=== PATIENT | female | born 1935 | race Caucasian/White ===

== ENCOUNTER 2021-04-06 17:14 | Outpatient (CLI) | payer MEDICARE, SELFPAY ==
--- NOTE | ~2021-04-06 | MM_ITS ---
EXAMINATION: MM screening jose BI w don HISTORY: Screening mammogram TECHNIQUE: Craniocaudal and mediolateral oblique 3-D tomosynthesis images were obtained and synthetic 2-D images were generated. CAD analysis was submitted and interpreted. COMPARISON: 07/15/2018, 02/15/2017, 09/09/2014 bilateral digital screening mammogram examinations BREAST PARENCHYMAL COMPOSITION: There are scattered areas of fibroglandular density. FINDINGS: Stable mild fibroglandular asymmetry. Occasional bilateral benign calcifications. There is no evidence of suspicious mass, calcification, or architectural distortion to suggest malignancy in e ither breast. There has been no suspicious interval change. IMPRESSION: 1. No mammographic evidence of malignancy. 2. Recommend routine screening mammography in one year. BI-RADS Category 2: Benign finding(s). Reviewed, dictated and finalized at location A.
--- NOTE | ~2021-04-06 | DEXA_ITS ---
Bone Density Report Name: Elsa Turner Age: 86 Sex: Female Ethnicity: White Date of : 1935 Indication: osteopenia; height loss; hysterectomy;postmenopausal Referring Provider: Ketan Rodrigez Study: Bone densitometry was performed. Exam Date: April 06, 2021 Accession number: [id number] There is hypertrophic degenerative change of the lumbar spine, which results in higher than expected spine bone mineral density measurements. These spine BMD and T score and Z score measurements are not reflective of the patient's true general bone mineral density. Bone Density: Region BMD T-score Z-score Classification AP Spine (L1, L2, L4) 1.102 0.6 3.5 Normal Femoral Neck (Left) 0.581 -2.4 0.1 Osteopenia Total Hip (Left) 0.714 -1.9 0.5 Osteopenia Total Hip Bilateral Avg 0.763 -1.5 0.9 Osteopenia Femoral Neck (Right) 0.564 -2.6 0.0 Osteoporosis Total Hip (Right) 0.811 -1.1 1.3 Osteopenia World Health Organization criteria for BMD impression classify patients as: Normal (T-score at or above -1.0), Osteopenia (T-score between -1.0 and -2.5), or Osteoporosis (T-score at or below -2.5). 10-year Fracture Risk: FRAX not reported because: Some T-score for Spine Total or Hip Total or Femoral Neck at or below -2.5 Previous Exams: Region Exam Age BMD T-score BMD Change BMD Change Date g/cm2 vs Baseline vs Previous AP Spine(L1, L2, L4) 04/06/2021 86 1.102 0.6 0.196(21.6%)# 0.049(4.6%)# 03/27/2019 84 1.053 0.2 0.147(16.3%)# 0.147(16.3%)# 10/27/2008 73 0.906 -1.2 Total Hip(Left) 04/06/2021 86 0.714 -1.9 -0.110(-13.4%) -0.070(-8.9%)# 03/27/2019 84 0.783 -1.3 -0.040(-4.9%)# -0.004(-0.5%) 02/15/2017 81 0.787 -1.3 -0.036(-4.4%)# 0.039(5.2%)# 07/06/2013 78 0.749 -1.6 -0.075(-9.1%)# -0.075(-9.1%)10/27/2008 73 0.824 -1.0 Total Hip(Right) 04/06/2021 86 0.811 -1.1 -0.047(-5.5%)# 0.014(1.8%)# 03/27/2019 84 0.796 -1.2 -0.061(-7.1%)# -0.027(-3.3%) 02/15/2017 81 0.824 -1.0 -0.034(-3.9%)# -0.062(-7.0%)07/06/2013 78 0.885 -0.5 0.028(3.2%)# 0.028(3.2%)10/27/2008 73 0.858 -0.7 *Denotes significance at 95% confidence level, LSC for AP Spine = 0.022 g/cm2, LSC for Total Hip = 0.027 g/cm2 Clinical Information Provided by Patient: Smokes Has used the following medications: Vitamin D, Calcium Has the following medical conditions: Hysterectomy Patient maximum height was 62 Menopause Age: 43 No regular weight bearing exercise Drinks caffeinated beverages Onset o
== END 2021-04-06 17:15 | disposition home or self-care (01) ==
LOC: ANHIMG 17:17
PROVIDERS: PCP Family Medicine; Visit Provider Physician Assistant Medical
DX: Z12.31 Encounter for screening mammogram for malignant neoplasm of breast (principal); M81.0 Age-related osteoporosis without current pathological fracture; Z78.0 Asymptomatic menopausal state
CPT/HCPCS: 77063; 77067; 77080

== ENCOUNTER 2022-11-19 10:48 | Outpatient (CLI) | payer MEDICARE, SELFPAY ==
--- NOTE | ~2022-11-19 | US_ITS ---
EXAMINATION: US renal BI DATE: 11/19/2022 11:53 INDICATION: N18.4 - Chronic kidney disease, stage 4 (severe) TECHNIQUE: Multiple grayscale and Doppler ultrasound images of the kidneys were obtained. COMPARISON: None. FINDINGS: The right kidney measures 8.5 x 4.5 x 4.3 cm. The left kidney measures 9.4 x 4.3 x 3.7 cm. The kidney s demonstrate normal parenchymal echogenicity. 1 cm hyperechoic focus in the lateral right kidney wit h shadowing and twinkle artifact. Multiple echogenic foci in the left kidney, largest at the UPJ ilir uring 8mm. 2.1 cm simple upper pole cyst. There is mild left hydronephrosis. Ureteral jets not visual ized. Echogenic focus in the left lateral bladder wall with twinkle artifact. IMPRESSION: Bilateral nephrolithiasis. 8mm left UPJ stone. Mild left hydronephrosis. Ureteral jets not visualized . Bladder stone or calcification. Consider CT urography for further evaluation Reviewed, dictated and finalized at location K. IMPRESSION: Bilateral nephrolithiasis. 8mm left UPJ stone. Mild left hydronephrosis. Ureter al jets not visualized. Bladder stone or calcification. Consider CT urography f or further evaluation
== END 2022-11-19 10:49 | disposition home or self-care (01) ==
PROVIDERS: PCP Family Medicine; Visit Provider Internal Medicine Nephrology
DX: N18.4 Chronic kidney disease, stage 4 (severe) (principal); N20.0 Calculus of kidney
CPT/HCPCS: 76775

== ENCOUNTER 2022-11-28 10:07 | Outpatient (CLI) | payer MEDICARE, SELFPAY ==
--- NOTE | ~2022-11-28 | XR_ITS ---
Supine and upright views of the abdomen Clinical history: Renal stone COMPARISON: 05/26/2012 Findings: Bowel gas pattern is nonspecific. No evidence for obstruction or free air. There are bilate ral renal stones present, measuring up to 6 mm in diameter right upper pole, and 5 mm in diameter lef t lower pole. No definite ureteral stone. There is levoscoliosis with degenerative change of the lowe r lumbar spine.. Impression: Bilateral nephrolithiasis, as above. Reviewed, dictated and finalized at location M. Impression: Bilateral nephrolithiasis, as above.
== END 2022-11-28 10:08 | disposition home or self-care (01) ==
PROVIDERS: PCP Family Medicine; Visit Provider Urology
DX: N20.0 Calculus of kidney (principal)
CPT/HCPCS: 74018

== ENCOUNTER 2022-12-10 11:08 | Outpatient (CLI) | payer MEDICARE, SELFPAY ==
--- NOTE | 2022-12-10 11:23 | ECG_ITS ---
Measurements Intervals [place] Rate: 70 P: 53 OH: 221 QRS: 6 QRSD: 86 T: 56 QT: 375 QTc: 405 Interpretive Statements SINUS RHYTHM WITH FIRST DEGREE AV BLOCK BASELINE ARTIFACT- I, II, III, AVR, AVL, AVF, V1-V6 BORDERLINE ECG NO PREVIOUS ECG AVAILABLE FOR COMPARISON Electronically Signed On 12-10-2022 12:18:09 CDT by Bandar Robin D.O.
[2022-12-10 12:18] LABS: Anion Gap 2 mmol/L (8-16); Blood Urea Nitrogen 36 mg/dL (7-17); Calcium 9.6 mg/dL (8.4-10.2); Carbon Dioxide 33 mmol/L (22-30); Chloride 102 mmol/L (98-107); Estimated Glomerular Filt Rate 21; Glucose 101 mg/dL (65-110); Potassium 4.9 mmol/L (3.4-5.0); Prothrombin Time 13.1 Seconds (11.1-14.7); Sodium 137 mmol/L (137-145)
[2022-12-10 12:19] LABS: Partial Thromboplastin Time 34.9 SECONDS (22.3-36.8)
== END 2022-12-10 11:09 | disposition home or self-care (01) ==
PROVIDERS: Anesthesiology; PCP Family Medicine; Visit Provider Urology
DX: I12.9 Hypertensive chronic kidney disease with stage 1 through stage 4 chronic kidney disease, or unspecified chronic kidney disease (principal); N18.4 Chronic kidney disease, stage 4 (severe); N20.0 Calculus of kidney; Z01.818 Encounter for other preprocedural examination; I44.0 Atrioventricular block, first degree
CPT/HCPCS: 36415; 80048; 85610; 85730; 87086; 87088; 93005

== ENCOUNTER 2022-12-14 02:06 | Day surgery (SDC) | payer MEDICARE, SELFPAY ==
[2022-12-05 13:01] VITALS: BMI 24.3
--- NOTE | 2022-12-05 13:18 | PC.NURSE ---
PRE-OP INSTRUCTIONS, PLEASE READ CAREFULLY Report to the Outpatient Waiting Room, entrance under the green pavilion located off [facility], at time _0930_ on date _12/14/22_. Planned Procedure Time: _1130_. Time changes happen often and if your time is changed the preop area will call you the afternoon before. - You and your visitor will be asked to self-screen and do not enter if you have any COVID symptoms. - A mask is optional within the hospital at this time. Patients may have clear liquids (water, carbonated beverages, clear teas, apple juice) until 3 hours prior to surgery (0830 AM) with a maximum of 20 ounces. - No food from midnight until time of surgery Take the following medications with a SIP of water the morning of surgery: _GABAPENTIN, METOPROLOL, INHALER IF NEEDED_ DO NOT STOP ANY OF YOUR OTHER PRESCRIPTION MEDICATIONS PRIOR TO SURGERY ?EXCEPT THE FOLLOWING Medications to discontinue _ASPIRIN PER DR. STEELE'S INSTRUCTIONS__ Medications to discontinue per ANESTHESIA - _MULTIVITAMIN 3 DAYS PRIOR TO SURGERY, Date to take last dose 12/10/22_ Please no make-up, nail maltese, hairspray, perfume, deodorant, or body powder the day of surgery. No jewelry (including any body piercings) or valuables the day of surgery, leave them at home. Please take a shower or bath the night before, or the morning of, surgery with an antibacterial soap. Wear comfortable, loose fitting clothing. Children are encouraged to wear pajamas. - Jewelry must be removed prior to entering the operating room. Rings and piercings that are not removed may be cut off. - The hospital will not accept responsibility for valuables. - Please leave all valuables, including medications, at home the day of surgery. If you are going home after surgery, a licensed goat driver must drive you home. - NO public transportation without another adult if you receive anesthesia. - We recommend that an adult stay with you for 24 hours following discharge. - We also recommend that you do not drive, make important decision, drink alcoholic beverages, or take any drugs that were not prescribed by your health care provider for at least 24 hours after your discharge time. Follow any additional instructions given to you from your surgeon. If you or anyone in your household have experienced Covid symptoms in the past week, please notify your surgeon or the nurse liaison at the phone number below for possible testing. Telephone instructions given to _PATIENT_and asked if any additional questions and then verbalized understanding. Patient advised to call surgeon office or pre surgery nurse liaison [phone] if any additional questions.
--- NOTE | 2022-12-10 18:56 | PM.HPGS ---
History of Present Illness History of Present Illness Consent: Risks, benefits, and alternatives have been discussed and questions answered. Patient agrees to proceed with procedure. Chief complaint: Left Kidney Stone Narrative: Elsa Turner is a 87 year old female recently underwent renal ultrasonography at the recommendation of her shop mechanic helper. This demonstrated an 8 mm partially obstructing stone at the left ureteropelvic junction. Follow-up imaging demonstrates calcification in the stone. After discussion of options she has elected for left ESWL. She is aware the risk including, but not limited to, perinephric hematoma, worsening of her kidney function,, need for additional procedures and hematuria or perinephric hematoma Review of Systems Review of Systems: All systems reviewed & are unremarkable except as noted in HPI and below PMFSH Past Medical History Medical History CKD (chronic kidney disease) stage 3, GFR 30-59 ml/min Fall Hypoglycemia Trigeminal neuralgia of right side of face Family History Family History Father Hypertension Sibling Hypertension Other Diabetes mellitus Social History Social History Smoking packs per day: 0.15 (1 pack per 2 1/2 weeks) Smoking cigarettes per day: 3.0 Years smoked: 70 Smoking pack-years: 10.50 Smoking status: Current every day smoker Tobacco type: cigarettes Additional smoking assessment comments: 1PK/2 1/2 WEEKS Alcohol intake: current Substance use type: does not use Lack of Transportation: No Lack of Food: Never True Current Housing: I Have Housing Concerned About Future Housing: No Difficulty Paying Gas/Electric Bills: No Difficulty Paying for Meds: No Currently Unemployed: No Education: High School Diploma/GED Difficulty w/ Childcare or Family Care: No Living arrangements: with family Gender identity (if verbalized by the patient): Female Spiritual care concerns: No Meds Home Medications and Allergies Home Medications Medication Instructions Recorded Confirmed Type aspirin 81 mg tablet,delayed 81 mg PO DAILY 07/03/19 12/05/22 History release (Adult Aspirin Regimen) calcium carbonate 600 mg calcium 600 mg PO DAILY 07/03/19 12/05/22 History (1,500 mg) tablet (Calcium) multivit with 1 tablet PO DAILY 02/02/21 12/05/22 History ndutmdut-egfb-OS-lutein 8 mg iron-400 mcg-300 mcg tablet (Centrum Silver Women) albuterol sulfate 90 mcg/actuation 2 puff inhalation Q6H PRN 06/27/21 12/05/22 Rx aerosol inhaler shortness of breath or wheezing #18 grams lovastatin 40 mg tablet 40 mg PO DAILY #90 tabs 03/07/22 12/05/22 Rx omeprazole 20 mg capsule,delayed 20 mg PO DAILY #90 caps 03/07/22 12/05/22 Rx release raloxifene 60 mg tablet See Rx Instructions .Route 03/14/22 12/05/22 Rx .COMPLEX #90 ea benzonatate 200 mg capsule 200 mg PO TID PRN cough #30 caps 09/26/22 12/05/22 Rx metoprolol succinate 100 mg See Rx Instructions .Route 10/25/22 12/05/22 Rx tablet,extended release 24 hr .COMPLEX #180 ea codeine 10 mg-guaifenesin 100 mg/5 5 ml PO Q4H PRN cough #120 mL 11/02/22 12/05/22 Rx mL oral liquid lisinopril 10 mg tablet 10 mg PO DAILY #90 tabs 11/27/22 12/05/22 Rx gabapentin 300 mg capsule See Rx Instructions .Route .COMPLEX 12/05/22 12/05/22 History Allergies Allergy/AdvReac Type Severity Reaction Status Date / Time nitrofurantoin Allergy Severe Pneumonia Verified 12/05/22 12:53 Penicillins Allergy Intermediate Rash Verified 12/05/22 12:53 Exam Const: General: no acute distress Resp: Effort & Inspection: normal respiratory effort GI: Inspection: non-distended GI Palp: No abdominal tenderness and No Guarding due to palpation present (GI) Auscultation: normal bowel sounds Assessment and Plan Assessment and
--- NOTE | 2022-12-13 09:36 | WPDANESEPPF ---
Anes - Initial Pre Proc Eval Procedure: Operation Date: 12/14/22 11:30 Proposed Procedures p Left Extracorporeal Shock Wave Lithotripsy - Hugh Goldsmith MD Date/Time: 12/13/22 09:36 Surgeon: Hugh Goldsmith MD Pre Op Diagnosis: Left Kidney Stone Patient Data Age: 87 Gender: F Height: 1.45 m Weight: 50.9 kg Allergies Allergy/AdvReac Type Severity Reaction Status Date / Time nitrofurantoin Allergy Severe Pneumonia Verified 12/14/22 09:48 Penicillins Allergy Intermediate Rash Verified 12/14/22 09:48 Home Medications Medication Instructions Recorded Confirmed Type aspirin 81 mg tablet,delayed 81 mg PO DAILY 07/03/19 12/14/22 History release (Adult Aspirin Regimen) calcium carbonate 600 mg calcium 600 mg PO DAILY 07/03/19 12/14/22 History (1,500 mg) tablet (Calcium) multivit with 1 tablet PO DAILY 02/02/21 12/14/22 History bpkvhvfm-hqrv-SW-lutein 8 mg iron-400 mcg-300 mcg tablet (Centrum Silver Women) albuterol sulfate 90 mcg/actuation 2 puff inhalation Q6H PRN 06/27/21 12/05/22 Rx aerosol inhaler shortness of breath or wheezing #18 grams raloxifene 60 mg tablet See Rx Instructions .Route 03/14/22 12/14/22 Rx .COMPLEX #90 ea benzonatate 200 mg capsule 200 mg PO TID PRN cough #30 caps 09/26/22 12/05/22 Rx metoprolol succinate 100 mg See Rx Instructions .Route 10/25/22 12/14/22 Rx tablet,extended release 24 hr .COMPLEX #180 ea codeine 10 mg-guaifenesin 100 mg/5 5 ml PO Q4H PRN cough #120 mL 11/02/22 12/05/22 Rx mL oral liquid lisinopril 10 mg tablet 10 mg PO DAILY #90 tabs 11/27/22 12/14/22 Rx gabapentin 300 mg capsule See Rx Instructions .Route .COMPLEX 12/05/22 12/14/22 History lovastatin 40 mg tablet 40 mg PO DAILY #90 tabs 12/12/22 12/14/22 Rx omeprazole 20 mg capsule,delayed 20 mg PO DAILY #90 caps 12/12/22 12/14/22 Rx release Patient hx anesthesia problems: none Family hx anesthesia problems: none Results Review: All pre-operative results and documents have been reviewed as part of the pre-operative evaluation. [facility] Past Medical History Medical History (Updated 12/13/22 @ 09:37 by Zachary Bonilla DO) CKD (chronic kidney disease) stage 3, GFR 30-59 ml/min COPD (chronic obstructive pulmonary disease) with acute bronchitis Essential (primary) hypertension Fall GERD (gastroesophageal reflux disease) Hypoglycemia Mixed hyperlipidemia Trigeminal neuralgia of right side of face Surgical History Surgical History (Updated 12/13/22 @ 09:37 by Zachary Bonilla DO) History of hysterectomy History of kidney transplant Family History Family History Father Hypertension Sibling Hypertension Other Diabetes mellitus Social History Social History Smoking packs per day: 0.15 (1 pack per 2 1/2 weeks) Smoking cigarettes per day: 3.0 Years smoked: 70 Smoking pack-years: 10.50 Smoking status: Current every day smoker Tobacco type: cigarettes Additional smoking assessment comments: 1PK/2 1/2 WEEKS Alcohol intake: current Substance use type: does not use Lack of Transportation: No Lack of Food: Never True Current Housing: I Have Housing Concerned About Future Housing: No Difficulty Paying Gas/Electric Bills: No Difficulty Paying for Meds: No Currently Unemployed: No Education: High School Diploma/GED Difficulty w/ Childcare or Family Care: No Living arrangements: with family Gender identity (if verbalized by the patient): Female Spiritual care concerns: No Anes - Eval Final PreProcedure Day of Procedure 12/13/22 09:36 Patient weight: normal Heart: regular rate and rhythm Lungs: clear to auscultation Airway: Mallampati scale class II Neurological: alert and oriented Last oral intake: >/= 8 hours ASA classification: III Emergent: no Anesthetic plan: proceed Anesthesia type an
[2022-12-14] VITALS (8 sets, daily range): BP systolic 118–143; BP diastolic 56–72; PULSE 63–78; RESP 10–19; TEMP 36.2–36.7; O2SAT 92–100
--- NOTE | ~2022-12-14 | XR_ITS ---
EXAMINATION: XR abdomen/kub 1V DATE: 12/14/2022 09:25 INDICATION: Kidney stone. TECHNIQUE: A supine view of the abdomen on 2 radiographs was obtained. COMPARISON: Abdomen radiographs 11/28/2022, 05/26/2012 FINDINGS: There are no dilated loops of bowel. There are approximately 3 stones in right kidney measu ring up to 7 mm. There are approximately 4 stones in left kidney measuring up to 5 mm. There are nume tye calcifications in the pelvis, likely phleboliths. IMPRESSION: 1. Bilateral kidney stones. Reviewed, dictated and finalized at location A. IMPRESSION: 1. Bilateral kidney stones.
--- NOTE | 2022-12-14 06:51 | WPDHPUPDATE1 ---
History and Physical Update Update Date/Time: 12/14/22 06:51 History and Physical has been reviewed, including an updated exam of the patient. There are NO changes in the patient's condition. Risks, benefits, and alternatives have been discussed and questions answered. Patient agrees to proceed with procedure.
--- NOTE | 2022-12-14 09:59 | SUR.PREOP ---
pt informed delay in start of procedure
[2022-12-14] MEDS: LACTATED RINGERS 1,000 ML 30 ML IV CONT ×2 (10:10→13:14)
[2022-12-14] MEDS: ceFAZolin 2 GM/D5W 50 ML 2 GM/50 ML BAG IVPB (12:22)
--- NOTE | 2022-12-14 12:52 | W.PM.PROC2 ---
Procedure Note - Detailed Date of Procedure 12/14/22 Pre-op Diagnosis Left Kidney Stones Post-op Diagnosis Same Procedure Performed Left ESWL Surgeon Hugh Goldsmith MD Anesthesia General and MAC Description of Procedure The patient was brought to the operative suite where she was placed in the supine position on the Dornier lithotripsy table. The focal point of the lithotripter was placed two stones in the left kidney and we split 2500 shocks between a stone in the left renal pelvis and one in the left lower pole calyx - each measuing 5-6mm. We used a power setting of 4. There appeared to be good fragmentation of the stones. The patient tolerated the procedure well and was taken to the recovery room in good condition. Drains No Packing No Pathology None sent Complications No immediate complications Condition Stable Disposition PACU
--- NOTE | 2022-12-14 13:43 | SUR.PHASEI ---
Addendum entered by Kirstie Poole RN 12/14/22 13:49: 1442 Original Note: 1432: Simple mask removed.
== END 2022-12-14 14:54 | disposition home or self-care (01) ==
PROVIDERS: PCP Family Medicine; Visit Provider Urology
PROC: (CPT 50590; principal; 2022-12-14 11:30)
DX: N20.0 Calculus of kidney (principal); N18.30 Chronic kidney disease, stage 3 unspecified; F17.210 Nicotine dependence, cigarettes, uncomplicated
CPT/HCPCS: 50590; 36415; 74018; 80048; 85610; 85730; 87086; 87088; 93005; J0690; J1100; J2405; J2704; J7120

== ENCOUNTER 2022-12-20 09:00 | Outpatient (CLI) | payer MEDICARE, SELFPAY ==
--- NOTE | ~2022-12-20 | XR_ITS ---
Supine and upright views of the abdomen Clinical history: Abdominal pain COMPARISON: 12/14/2022 Findings: Bowel gas pattern is nonspecific. No evidence for obstruction or free air. Multiple right r enal stones are present, essentially unchanged from prior exam., Left lower pole renal stone also unc hanged. 23 degree levoscoliosis of lumbar spine present with extensive degenerative disc changes.. Impression: Bilateral nephrolithiasis, stable from prior exam. 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 Reviewed, dictated and finalized at location M. Impression: Bilateral nephrolithiasis, stable from prior exam. 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
== END 2022-12-20 09:01 | disposition home or self-care (01) ==
PROVIDERS: PCP Family Medicine; Visit Provider Urology
DX: N20.0 Calculus of kidney (principal); M47.816 Spondylosis without myelopathy or radiculopathy, lumbar region
CPT/HCPCS: 74018

== ENCOUNTER 2023-02-15 14:31 | Outpatient (CLI) | payer MEDICARE, SELFPAY ==
--- NOTE | ~2023-02-15 | MR_ITS ---
EXAMINATION: MR brain IAC wo con DATE: 02/15/2023 16:05 INDICATION: Ataxia, unspecified. TECHNIQUE: Magnetic resonance imaging (MRI) of the brain, brainstem, and internal auditory canals was performed without intravenous contrast. COMPARISON: None. FINDINGS: There are scattered areas of nonspecific increased T2-weighted signal intensity in the cere bral white matter, which is within normal limits for the patient's age. There is no intracranial hemo rrhage, acute infarction, or abnormal intracranial mass lesion. The ventricles are normal in size. Th ere are likely changes of ocular lens replacement surgeries. There is minimal mucosal thickening in t he paranasal sinuses. The internal auditory canals and inner and middle ears are normal. The mastoid air cells are normal. IMPRESSION: 1. Normal aging brain. Reviewed, dictated and finalized at location A. IMPRESSION: 1. Normal aging brain.
== END 2023-02-15 14:32 | disposition home or self-care (01) ==
PROVIDERS: PCP Family Medicine; Visit Provider Family Medicine
DX: H55.00 Unspecified nystagmus (principal); R27.0 Ataxia, unspecified
CPT/HCPCS: 70551

== ENCOUNTER 2023-10-21 15:53 | Outpatient (CLI) | payer MEDICARE, SELFPAY ==
--- NOTE | ~2023-10-21 | XR_ITS ---
EXAMINATION: XR abdomen/kub 1V INDICATION: Calculus of the kidney TECHNIQUE: Supine view of the abdomen is obtained. COMPARISON: 12/20/2022 FINDINGS: There are three stable stones of the right kidney measuring up to 5 mm. A stable 2 mm stone projects in the left kidney. There are phleboliths of the pelvis. The bowel gas pattern is normal. 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 Severe lumbar spondylosis is noted. IMPRESSION: 1. Stable bilateral nephrolithiasis. Reviewed, dictated and finalized at location F.
== END 2023-10-21 15:54 | disposition home or self-care (01) ==
PROVIDERS: PCP Family Medicine; Visit Provider Urology
DX: N20.0 Calculus of kidney (principal)
CPT/HCPCS: 74018

== ENCOUNTER 2023-11-19 12:33 | Outpatient (CLI) | payer MEDICARE, SELFPAY ==
--- NOTE | ~2023-11-19 | XR_ITS ---
Supine and upright views of the abdomen Clinical history: Chronic kidney disease COMPARISON: 10/21/2023 Findings: Bowel gas pattern is nonspecific. No evidence for obstruction or free air. Suspected small bilateral renal stones are present, unchanged. Degenerative change of the spine is stable from prior exam. Impression: Probable small bilateral renal stones, unchanged. Reviewed, dictated and finalized at location . Impression: Probable small bilateral renal stones, unchanged.
== END 2023-11-19 12:34 | disposition home or self-care (01) ==
PROVIDERS: PCP Family Medicine; Referring Provider Urology; Visit Provider Internal Medicine Nephrology
DX: N18.4 Chronic kidney disease, stage 4 (severe) (principal); N20.0 Calculus of kidney
CPT/HCPCS: 74018

== ENCOUNTER 2023-11-21 15:51 | Outpatient (CLI) | payer MEDICARE, SELFPAY ==
--- NOTE | ~2023-11-21 | CT_ITS ---
EXAMINATION: CT abdomen pelvis wo con DATE: 11/21/2023 15:40 INDICATION: Unspecified abdominal pain. TECHNIQUE: Computed tomography (CT) of the abdomen and pelvis was performed without intravenous contr ast. Automated exposure control and iterative reconstruction technique were employed. The dose-length product was 312.23 mGy-cm. COMPARISON: CT abdomen and pelvis 03/27/2011 FINDINGS: The visualized portions of lung bases demonstrate mild atelectasis. There is a pneumatocele in right middle lobe. No pleural effusion. The heart size is normal. No pericardial effusion. The li connie is normal. There are gallstones in the gallbladder, which is normal in size. The spleen, pancreas , and right adrenal gland are normal. There is a 12 mm mass in left adrenal gland measuring low atten uation, consistent with an adenoma. There is a 17 mm cyst in right kidney. There are 3 stones in righ t kidney measuring up to 6 mm. There is a 4 mm stone in left kidney. There is a 5 mm stone in left re nal pelvis. There are two 3 mm stones in distal left ureter with mild left hydronephrosis and hydrour eter. The left ureter inserts into the bladder anterior to the expected position. There is diverticul osis of the colon without evidence of diverticulitis. There are no dilated loops of bowel. The append ix is normal. There is calcified atherosclerosis of the aorta and many of the other arteries. There i s no free intraperitoneal fluid. There is lumbar levoscoliosis and severe spondylosis. IMPRESSION: 1. Two 3 mm stones in distal left ureter with mild left hydronephrosis and hydroureter. The ureter in serts into the bladder anterior to the expected position. 2. Bilateral nonobstructing kidney stones. Reviewed, dictated and finalized at location E. IMPRESSION: 1. Two 3 mm stones in distal left ureter with mild left hydronephrosis and hydr oureter. The ureter inserts into the bladder anterior to the expected position. 2. Bilateral nonobstructing kidney stones.
[2023-11-21 15:32] LABS: Estimated Glomerular Filt Rate 22
== END 2023-11-21 15:52 | disposition home or self-care (01) ==
PROVIDERS: PCP Family Medicine; Visit Provider Internal Medicine Nephrology
DX: R10.9 Unspecified abdominal pain (principal); N20.2 Calculus of kidney with calculus of ureter
CPT/HCPCS: 74176

== ENCOUNTER 2023-11-21 16:39 | Observation (INO) | payer MEDICARE, SELFPAY ==
--- NOTE | ~2023-11-21 | XR_ITS ---
EXAMINATION: XR retrograde pyelo w/stent LT DATE: 11/22/2023 16:10 INDICATION: Left-sided ureteral stone removal and stent placement. TECHNIQUE: 3 fluoroscopic images of the abdomen and pelvis were obtained during procedure performed b howard Platt. Radiologist was not present for the imaging or procedure. The amount of fluoroscopy time used during this procedure was 0.7 minutes. COMPARISON: 11/21/2023 FINDINGS: Initial image demonstrates retrograde contrast injection and wire advancement through the left ureter into the left renal pelvis. Final images demonstrate placement of a left intraureteral stents with l oops formed in the left renal pelvis and bladder. There are several phleboliths in the pelvis. IMPRESSION: 1. Fluoroscopy utilized during reported left ureteral stone extraction and internal ureteral stent pl acement with stent in expected position. See procedure note for further detail. Reviewed, dictated and finalized at location A. IMPRESSION: 1. Fluoroscopy utilized during reported left ureteral stone extraction and inte rnal ureteral stent placement with stent in expected position. See procedure no te for further detail.
[2023-11-21 16:40] VITALS: BP 180/66; PULSE 80; RESP 18; TEMP 36.6; O2SAT 98
--- NOTE | 2023-11-21 18:49 | ED.FEMALEGU ---
HPI - Female Genitourinary General Chief complaint: Urogenital-Female <Savannah Martinez PA-C - Last Filed: 11/21/23 21:05> Stated complaint: from CT- has kidney stones <Savannah Martinez PA-C - Last Filed: 11/21/23 21:05> Time Seen by Provider: 11/21/23 18:25 <Savannah Martinez PA-C - Last Filed: 11/21/23 21:05> History of Present Illness HPI Narrative: 88-year-old female with history of hyperlipidemia, hypertension, COPD, CKD, multiple kidney stones presents to the emergency department for a kidney stone in her left UVJ. Patient states 6 days ago she began developing pain in her left lower quadrant and in her left flank. She made an appointment with her ukrainian folk arts instructor, Dr. Giles who she saw 2 days ago. States when she saw Dr. Giles her symptoms had resolved so she did not have anything done at that time. States her symptoms came back later that afternoon and she contacted Dr. Giles to office and had an outpatient CT scan performed today. CT shows he to 3 mm stone small distal left ureter with mild left hydronephrosis and hydroureter. The ureter inserts into the bladder anterior to the expected position. There is bilateral nonobstructing kidney stones. The patient was contacted by Dr. Giles to office and advised to come to the ED for further evaluation. She reports intermittent dry heaving and nausea denies vomiting, fever, dysuria or hematuria, urinary frequency or urgency. Upon her arrival to the ED she is reporting her pain at 2/10, now stating is around a 5/10. States she had to have with shockwave lithotripsy several times in also had the have the stone removed back in 1976. <Savannah Martinez PA-C - Last Filed: 11/21/23 21:05> Related Data Home medications: Home Medications Medication Instructions Recorded Confirmed aspirin 81 mg tablet,delayed 81 mg PO DAILY 07/03/19 11/20/23 release (Adult Aspirin Regimen) calcium carbonate (Calcium 600) 600 mg PO DAILY 07/03/19 11/20/23 [id number] 8 mg-folic 400 1 tablet PO DAILY 02/02/21 11/20/23 mcg-K 50 mcg-lutein 300 mcg tablet (Centrum Silver Women) <Savannah Martinez PA-C - Last Filed: 11/21/23 21:05> Allergies/Adverse reactions: Allergies Allergy/AdvReac Type Severity Reaction Status Date / Time nitrofurantoin Allergy Severe Pneumonia Verified 11/21/23 16:39 Penicillins Allergy Intermediate Rash Verified 11/21/23 16:39 <Savannah Martinez PA-C - Last Filed: 11/21/23 21:05> Review of Systems Review of Systems: CONSTITUTIONAL: Denies fever, chills, or sweats. EYES: Denies visual changes, redness, or discharge. ENT: Denies rhinorrhea, congestion, sore throat, or otalgia. CARDIOVASCULAR: Denies chest pain, palpitations, or edema. RESPIRATORY: Denies cough or dyspnea. GASTROINTESTINAL: See HPI GENITOURINARY: See HPI SKIN: Denies rash or itching. MUSCULOSKELETAL: Denies back pain, joint pain, or myalgia. NEUROLOGIC: Denies headache, numbness, or weakness. PSYCHIATRIC: Denies anxiety or depression. <Savannah Martinez PA-C - Last Filed: 11/21/23 21:05> [facility] Past Medical History Medical History: Medical History CKD (chronic kidney disease) stage 3, GFR 30-59 ml/min COPD (chronic obstructive pulmonary disease) with acute bronchitis Essential (primary) hypertension Fall GERD (gastroesophageal reflux disease) Hypoglycemia Mixed hyperlipidemia Trigeminal neuralgia of right side of face Vitreous detachment <Savannah Martinez PA-C - Last Filed: 11/21/23 21:05> Surgical History Surgical History: Surgical History History of hysterectomy History of kidney transplant <Savannah Martinez PA-C - Last Filed: 11/21/23 21:05> Family History Family History: Family History Father Hypertension Sibling Hypertension Oth
[2023-11-21] MEDS: MORPHINE SULFATE (*CRX) 4 MG/ML INJ 2 MG IV PUSH (19:04)
[2023-11-21] MEDS: SODIUM CHLORIDE 0.9% IV 1,000 ML 999 ML IV CONT (19:04)
[2023-11-21 19:08] LABS: Basophils Absolute Auto 0.1 K/mm3 (0.0-0.1); Basophils Percent Auto 0.6 % (0.2-1.2); Eosinophils Absolute Auto 0.4 K/mm3 (0-0.3); Eosinophils Percent Auto 4.9 % (0-4.4); Hematocrit 34.6 % (37.0-47.0); Hemoglobin 11.1 g/dL (12.0-15.0); Immature Granulocyte Absolute 0.04 K/mm3 (0.00-0.031); Immature Granulocyte Percent A 0.5 % (0-0.5); Lymphocytes Absolute Auto 2.26 K/mm3 (0.9-3.2); Lymphocytes Percent Auto 25.9 % (18.3-44.2); Mean Corpuscular HGB Conc 32.1 g/dl (32-36); Mean Corpuscular Hemoglobin 31.4 pg (26-34); Mean Platelet Volume 9.4 fl (7.4-10.4); Monocytes Absolute Auto 0.8 K/mm3 (0.1-0.6); Monocytes Percent Auto 9.4 % (2.6-8.5); Neutrophils Absolute Auto 5.1 K/mm3 (1.3-6.7); Neutrophils Percent Auto 58.7 % (45.5-73.1); Platelet Count Result 279 k/mm3 (150-375); Red Blood Count 3.53 M/mm3 (4.2-5.4); Red Cell Distribution Width 13.9 % (11.5-14.5); White Blood Count 8.7 K/mm3 (4.5-10.0)
[2023-11-21 19:20] LABS: Alanine Aminotransferase 20 U/L (6-35); Albumin Level 4.1 g/dL (3.5-5.1); Alkaline Phosphatase 62 U/L (38-126); Anion Gap 7 mmol/L (4-12); Aspartate Amino Transferase 32 U/L (14-36); Bilirubin,Total 0.6 mg/dL (0.2-1.3); Blood Urea Nitrogen 25 mg/dL (7-17); Calcium 10.2 mg/dL (8.4-10.2); Carbon Dioxide 25 mmol/L (22-30); Chloride 107 mmol/L (98-107); Estimated Glomerular Filt Rate 27; Glucose 85 mg/dL (65-110); Lipase 197 U/L (23-300); Potassium 4.7 mmol/L (3.4-5.0); Sodium 139 mmol/L (137-145)
--- NOTE | 2023-11-21 19:20 | PC.NURSE ---
Assumed care of pt from LIZ Marie at this time.
[2023-11-21 19:40] LABS: Appearance Urine Clear (Clear); Bacteria Urine None Seen /hpf; Bilirubin Urine Negative (Negative); Blood Urine 3+ (Negative); Color Urine Yellow (Yellow); Glucose Urine UA Negative (Negative); Ketones Urine Negative (Negative); Leukocyte Esterase Ur 1+ LEU/UL (Negative); Nitrate Urine Negative (Negative); Non Pathogenic Casts 0-2; Protein Urine Negative (Negative); RBC Urine >100 /hpf (0-2); Specific Grav Ur 1.009 (1.001-1.035); Squamous Epithelial Cell Urine None Seen /hpf (Few); Urobilinogen Urine 0.2 mg/dL (<2.0); WBC Urine 21-50 /hpf (0-3); pH Urine 6.5 (5.0-9.0)
[2023-11-21 19:53] LABS: Add Urine Microscopic? YES
[2023-11-21 21:41] VITALS: PULSE 71
[2023-11-21] MEDS: lisinopriL 10 MG TABLET PO (21:41)
[2023-11-21] MEDS: METOPROLOL SUCCINATE EXT REL 25 MG TABCR PO (21:41)
--- NOTE | 2023-11-21 22:20 | PM.IMHP ---
H&P: HPI History of Present Illness Date/Time: 11/21/23 22:20 Chief Complaint: left flank pain Narrative: this is an 88-year-old female with past medical history significant for chronic kidney disease, hypertension, spinal stenosis, COPD/ emphysema, GERD, trigeminal neuralgia. Patient presents to the emergency room due to left flank pain, patient denies any fevers, rigors, chills, nausea, vomiting. Preliminary workup in the emergency room was significant for CT of abdomen and pelvis for left ureter stone, urinalysis was significant for numerous WBCs present Chemistry panel was significant for creatinine of 1.8, BUN 25. Patient has been admitted for further evaluation management and treatment. EXAMINATION: CT abdomen pelvis wo con DATE: 11/21/2023 15:40 INDICATION: Unspecified abdominal pain. TECHNIQUE: Computed tomography (CT) of the abdomen and pelvis was performed without intravenous contrast. Automated exposure control and iterative reconstruction technique were employed. The dose-length product was 312.23 mGy-cm. COMPARISON: CT abdomen and pelvis 03/27/2011 FINDINGS: The visualized portions of lung bases demonstrate mild atelectasis. There is a pneumatocele in right middle lobe. No pleural effusion. The heart size is normal. No pericardial effusion. The liver is normal. There are gallstones in the gallbladder, which is normal in size. The spleen, pancreas, and right adrenal gland are normal. There is a 12 mm mass in left adrenal gland measuring low attenuation, consistent with an adenoma. There is a 17 mm cyst in right kidney. There are 3 stones in right kidney measuring up to 6 mm. There is a 4 mm stone in left kidney. There is a 5 mm stone in left renal pelvis. There are two 3 mm stones in distal left ureter with mild left hydronephrosis and hydroureter. The left ureter inserts into the bladder anterior to the expected position. There is diverticulosis of the colon without evidence of diverticulitis. There are no dilated loops of bowel. The appendix is normal. There is calcified atherosclerosis of the aorta and many of the other arteries. There is no free intraperitoneal fluid. There is lumbar levoscoliosis and severe spondylosis. IMPRESSION: 1. Two 3 mm stones in distal left ureter with mild left hydronephrosis and hydroureter. The ureter inserts into the bladder anterior to the expected position. 2. Bilateral nonobstructing kidney stones. Review of Systems Review of Systems: left flank pain Constitutional: Constitutional: Denies chills, Denies fever(s) and Denies night sweats Eyes: Eyes: Denies change in vision ENT: Denies dysphagia and Denies odynophagia Cardiovascular: Cardiovascular: Denies chest pain, Denies radiating jaw, neck or arm pain and Denies palpitations Respiratory: Respiratory: Denies cough and Denies excessive phlegm production Gastrointestinal: Gastrointestinal: Denies abdominal pain, Denies nausea and Denies vomiting Genitourinary: Genitourinary: Reports flank pain Musculoskeletal: Musculoskeletal: Reports back pain Integumentary/Breasts: Skin/Breast: Denies rash Neurologic: Denies focal weakness and Denies Sensory deficit (Neuro) Psychiatric: Psychiatric: Reports no additional psychiatric complaints and Reports as per HPI Endocrine: Endocrine: Denies cold intolerance, Denies fatigue, Denies flushing, Denies heat intolerance, Denies polyphagia, Denies polydipsia, Denies polyuria and Denies palpitations Hematologic/Lymphatic: Hematologic/Lymphatic: Reports no additional hematologic/lymphatic complaints and Reports as per HPI Allergic/Immunologic: Allergic/Immunologic: Reports no additional allergic/immunologic complaints and Reports as per HPI PMFSH Past Medical History Medical History CKD (chronic kidney disease) stage 3, GFR 30-59 ml/min COPD (chronic obstructive pulmonary disease) with acute bronchitis Essential (primary) h
[2023-11-21 22:36] VITALS: BMI 26.3
--- NOTE | 2023-11-21 22:39 | ADMGEN ---
This patient, Elsa Turner, was admitted to 3 Med Surg Room 303-01. Patient/family oriented to hospital policies and general routines including ID bracelet, bed and alarms, visiting hours, pain management, procedures, bathroom and other care routines, personal items, smoking policy, room service/diet, and visiting hours. Information on how to activate the Rapid Response Team has been discussed. Patient/Family are encouraged to report perceived risks to care and to ask questions if they do not understand what they are told or what they should do.
[2023-11-21 22:40] VITALS: BP 164/79; PULSE 88; RESP 20; TEMP 36.2; O2SAT 95
[2023-11-21] MEDS: SODIUM CHLORIDE 0.9% IV 1,000 ML 100 ML IV CONT (23:19)
[2023-11-22] VITALS (13 sets, daily range): BP systolic 109–144; BP diastolic 50–90; PULSE 63–99; RESP 12–18; TEMP 36.2–36.4; O2SAT 91–100
[2023-11-22] MEDS: MORPHINE SULFATE (*CRX) 2 MG/ML INJ IV PUSH ×2 (03:37→09:32)
[2023-11-22] MEDS: SODIUM CHLORIDE 0.9% IV 1,000 ML 100 ML IV CONT (08:48)
[2023-11-22] MEDS: RALOXIFENE HCL (*CHEMO) 60 MG TABLET PO (08:49)
[2023-11-22] MEDS: PANTOPRAZOLE 40 MG TABLET PO (08:49)
[2023-11-22] MEDS: LOVASTATIN 20 MG TABLET 40 MG PO (08:49)
[2023-11-22] MEDS: CALCIUM CARBONATE (OSCAL) 500 MG TABLET 600 MG PO (08:49)
[2023-11-22] MEDS: METOPROLOL SUCCINATE EXT REL 25 MG TABCR PO (08:50)
[2023-11-22] MEDS: TAMSULOSIN HCL 0.4 MG CAPSULE PO (08:50)
[2023-11-22] MEDS: GABAPENTIN 300 MG CAPSULE BY MOUTH (08:51)
[2023-11-22] MEDS: ASPIRIN 81 MG ENTERIC TABLET PO (08:51)
--- NOTE | 2023-11-22 11:28 | WPDURCON ---
Assessment and Plan Assessment and plan (1) Ureteral stone with hydronephrosis: Code(s): N13.2 - Hydronephrosis with renal and ureteral calculous obstruction Status: Acute Assessment and Plan: Two 3 mm distal left ureteral stones visible on CT with mild left hydronephrosis Discussed treatment options including trial of passage vs ureteroscopy. Dr. Platt reviewed procedure with patient and discussed risks vs benefits, especially in setting of advanced age and history of ureteral reconstruction. She elects to proceed with cystoscopy, ureteroscopy with possible laser lithotripsy and left ureteral stent placement this afternoon with Dr. Platt. Continue NPO diet (2) Abnormal urinalysis: Code(s): R82.90 - Unspecified abnormal findings in urine Status: Acute Assessment and Plan: UA slightly abnormal though she is asymptomatic Continue empiric antibiotics while awaiting results of urine culture (3) CKD (chronic kidney disease) stage 3, GFR 30-59 ml/min: Code(s): N18.3 - Chronic kidney disease, stage 3 (moderate) Status: Acute Assessment and Plan: Creatinine 1.8 today, consistent with baseline (4) S/P ureteral reimplantation: Code(s): Z98.890 - Other specified postprocedural states Status: Acute Assessment and Plan: History of left ureteral reconstruction and reimplantation in 1970s secondary to impacted left ureteral stone Urology Consult Note HPI Date Seen: 11/22/23 Requesting Physician: Jose Sanchez MD Primary Care Provider: Nash Chowdhury MD Consult Narrative Narrative: Elsa Turner is a 88 year old female with a history of CKD and kidney stones who is being seen in consultation for evaluation of ureteral stone. She reports about 2 days ago she developed left flank pain which she rated as 6/10. She informed her band cutter, Dr. Giles of these concerns and she had an outpatient CT scan which demonstrated a 3 mm distal left ureteral stones with mild left hydronephrosis, as well as a 5 mm left renal pelvis stone and bilateral nonobstructing renal stones, and anterior insertion point of the left ureter. She was instructed to go to the ER for further evaluation. Upon arrival, her vital signs were stable, she was afebrile, WBC 8.7, creatinine 1.8 (consistent with baseline), UA with 1+ leukocytes, RBC, WBC. A urine culture is pending. At the time of my evaluation, she is resting comfortably. She continues to enddorse 6/10 left flank pain. She denies dysuria or hematuria. She had nausea with onset of her symptoms two days prior but this has resolved. Denies vomiting. No subjective fever or chills. She does have a history of stones and is established with Dr. Goldsmith. She had left ESWL 11/2022 and 03/2011. She also reports a history of a distal left ureteral stone requiring surgical removal and left ureteral reconstruction done in [place] in the 1970s. Review of Systems Review of Systems: All systems reviewed & are unremarkable except as noted in HPI and below PMFSH Past Medical History Medical History (Updated 11/22/23 @ 04:03 by Jose Sanchez MD) CKD (chronic kidney disease) stage 3, GFR 30-59 ml/min COPD (chronic obstructive pulmonary disease) with acute bronchitis Essential (primary) hypertension Fall GERD (gastroesophageal reflux disease) Hypoglycemia Mixed hyperlipidemia Trigeminal neuralgia of right side of face Vitreous detachment Surgical History Surgical History (Updated 11/22/23 @ 12:52 by Ne Espinosa PA-C) History of hysterectomy History of kidney transplant S/P ureteral reimplantation Family History Family History (Updated 11/21/23 @ 22:43 by Jennifer Rubin RN) Father Hypertension Cerebrovascular accident Sibling Hypertension Cancer Other Diabetes mellitus Social History Social History Smoking packs per day: 0.2 Sm[employer]
--- NOTE | 2023-11-22 13:50 | P.PNIM_ITS ---
Progress Note: A&P Assessment and Plan (1) Ureteral stone with hydronephrosis: Code(s): N13.2 - Hydronephrosis with renal and ureteral calculous obstruction Status: Acute Assessment and Plan: * Urology consulted * Cystoscopies scheduled for today with most likely stent placement * Will be able to discharge tomorrow * Trend urine output * Follow labs (2) UTI (urinary tract infection): Code(s): N39.0 - Urinary tract infection, site not specified Status: Acute Assessment and Plan: * Patient presented to the ED with complaints left flank pain * UA appeared infectious * Continue Rocephin for now * Await urine cultures (3) Spinal stenosis of lumbar region with neurogenic claudication: Code(s): M48.062 - Spinal stenosis, lumbar region with neurogenic claudication Status: Acute Assessment and Plan: * Tylenol p.r.n. * Currently stable (4) Essential (primary) hypertension: Code(s): I10 - Essential (primary) hypertension Status: Acute Assessment and Plan: * Current BP 143/60 * Continue Home lisinopril and losartan when appropriate metoprolol continue * Trend Blood pressure * Adjust therapy as indicated (5) Cigarette smoker: Code(s): F17.210 - Nicotine dependence, cigarettes, uncomplicated Status: Acute Assessment and Plan: * nicotine patch as needed (6) COPD (chronic obstructive pulmonary disease) with acute bronchitis: Code(s): J44.0 - Chronic obstructive pulmonary disease with (acute) lower respiratory infection; J20.9 - Acute bronchitis, unspecified Status: Acute Assessment and Plan: * not actively wheezing * continue inhaler * Not in acute exacerbation (7) CKD (chronic kidney disease) stage 3, GFR 30-59 ml/min: Code(s): N18.3 - Chronic kidney disease, stage 3 (moderate) Status: Acute Assessment and Plan: * Current BUN and creatinine 25/1.8 * Baseline creatinine around 1.8-2.0 * BUN and creatinine noted to be worse in the last 2-3 months * patient seen nephrology is in the outpatient setting * holding lisinopril and losartan * restart as needed * Trend labs * Stable Time Spent With Patient Time: 41 minuites Time with patient: Greater than 35 minutes Subjective Date/time seen: 11/22/23 13:50 Interval history: 11/22/2023 Patient is lying in bed. Patient is very hard of hearing. She stated that she was feeling better than she did when she came in. She currently denies any nausea, vomiting this patient, weakness or fatigue. Did state she was having pain with peeing. Patient is scheduled to go for a cystoscopy this afternoon. Patient should be able to discharge tomorrow a.m.. 11/21/23? 22:20 ?this is an 88-year-old female with past medical history significant for chronic kidney disease, hypertension, spinal stenosis, COPD/ emphysema, GERD, trigeminal neuralgia.? Patient presents to the emergency room due to left flank pain, patient denies any fevers, rigors, chills, nausea, vomiting.? Preliminary workup in the emergency room was significant for CT of abdomen and pelvis for left ureter stone, urinalysis was significant for numerous WBCs present? Chemistry panel was significant for creatinine of 1.8, BUN 25.? Patient has been admitted for further evaluation management and treatment. Rev
--- NOTE | 2023-11-22 13:50 | PM.IMPN ---
Progress Note: A&P Assessment and Plan (1) Ureteral stone with hydronephrosis: Code(s): N13.2 - Hydronephrosis with renal and ureteral calculous obstruction Status: Acute Assessment and Plan: Urology consulted Cystoscopies scheduled for today with most likely stent placement Will be able to discharge tomorrow Trend urine output Follow labs (2) UTI (urinary tract infection): Code(s): N39.0 - Urinary tract infection, site not specified Status: Acute Assessment and Plan: Patient presented to the ED with complaints left flank pain UA appeared infectious Continue Rocephin for now Await urine cultures (3) Spinal stenosis of lumbar region with neurogenic claudication: Code(s): M48.062 - Spinal stenosis, lumbar region with neurogenic claudication Status: Acute Assessment and Plan: Tylenol p.r.n. Currently stable (4) Essential (primary) hypertension: Code(s): I10 - Essential (primary) hypertension Status: Acute Assessment and Plan: Current BP 143/60 Continue Home lisinopril and losartan when appropriate metoprolol continue Trend Blood pressure Adjust therapy as indicated (5) Cigarette smoker: Code(s): F17.210 - Nicotine dependence, cigarettes, uncomplicated Status: Acute Assessment and Plan: nicotine patch as needed (6) COPD (chronic obstructive pulmonary disease) with acute bronchitis: Code(s): J44.0 - Chronic obstructive pulmonary disease with (acute) lower respiratory infection; J20.9 - Acute bronchitis, unspecified Status: Acute Assessment and Plan: not actively wheezing continue inhaler Not in acute exacerbation (7) CKD (chronic kidney disease) stage 3, GFR 30-59 ml/min: Code(s): N18.3 - Chronic kidney disease, stage 3 (moderate) Status: Acute Assessment and Plan: Current BUN and creatinine 25/1.8 Baseline creatinine around 1.8-2.0 BUN and creatinine noted to be worse in the last 2-3 months patient seen nephrology is in the outpatient setting holding lisinopril and losartan restart as needed Trend labs Stable Time Spent With Patient Time: 41 minuites Time with patient: Greater than 35 minutes Subjective Date/time seen: 11/22/23 13:50 Interval history: 11/22/2023 Patient is lying in bed. Patient is very hard of hearing. She stated that she was feeling better than she did when she came in. She currently denies any nausea, vomiting this patient, weakness or fatigue. Did state she was having pain with peeing. Patient is scheduled to go for a cystoscopy this afternoon. Patient should be able to discharge tomorrow a.m.. 11/21/23? 22:20 ?this is an 88-year-old female with past medical history significant for chronic kidney disease, hypertension, spinal stenosis, COPD/ emphysema, GERD, trigeminal neuralgia.? Patient presents to the emergency room due to left flank pain, patient denies any fevers, rigors, chills, nausea, vomiting.? Preliminary workup in the emergency room was significant for CT of abdomen and pelvis for left ureter stone, urinalysis was significant for numerous WBCs present? Chemistry panel was significant for creatinine of 1.8, BUN 25.? Patient has been admitted for further evaluation management and treatment. Review of Systems Review of Systems: All systems reviewed & are unremarkable except as noted in HPI and below Exam Narrative: General: well-nourished, well-appearing 77-year-old female, sitting up in bed, comfortable, NARD Neuro: awake, alert and oriented x4, speech clear, no focal neuro deficits noted HEENMT: normocephalic, atraumatic, EOMI, sclerae anicteric, moist oral mucosa Respiratory: Clear to auscultation bilaterally without crackles, rhonchi or wheezes, nonlabored breathing Cardio: regular rate, regular rhythm with S1-S2 Abdom
--- NOTE | 2023-11-22 13:53 | WPDHPUPDATE1 ---
History and Physical Update Update Date/Time: 11/22/23 13:53 History and Physical has been reviewed, including an updated exam of the patient. There are NO changes in the patient's condition. Risks, benefits, and alternatives have been discussed and questions answered. Patient agrees to proceed with procedure.
[2023-11-22] MEDS: LACTATED RINGERS 1,000 ML 30 ML IV CONT (15:00)
--- NOTE | 2023-11-22 15:09 | WPDANESEPPF ---
Anes - Initial Pre Proc Eval Procedure: Operation Date: 11/22/23 15:00 Proposed Procedures p Cystoscopy, Left Ureteroscopy, Possible Left Retrograde Pyelogram, Possible Left Stone Extraction, Possible Left Stent Placement, Possible Holmium Laser - Franklin Platt MD Date/Time: 11/22/23 15:09 Surgeon: Jose Sanchez MD Pre Op Diagnosis: Ureterolithiasis Patient Data Age: 88 Gender: F Height: 1.45 m Weight: 55.2 kg Last Vital Signs Temp 97.4 F L 11/22/23 14:00 Pulse 99 11/22/23 14:00 Resp 16 11/22/23 14:00 BP 127/65 11/22/23 14:00 Pulse Ox 92 11/22/23 14:00 O2 Del Method Room Air 11/22/23 14:28 Allergies Allergy/AdvReac Type Severity Reaction Status Date / Time nitrofurantoin Allergy Severe Pneumonia Verified 12/04/23 13:57 Penicillins Allergy Intermediate Rash Verified 12/04/23 13:57 Home Medications Medication Instructions Recorded Confirmed Type aspirin 81 mg tablet,delayed 81 mg PO DAILY 07/03/19 12/04/23 History release (Adult Aspirin Regimen) calcium carbonate (Calcium 600) 600 mg PO DAILY 07/03/19 12/04/23 History trwnunmr-oirj-bzao 8 mg-folic 400 1 tablet PO DAILY 02/02/21 12/04/23 History mcg-K 50 mcg-lutein 300 mcg tablet (Centrum Silver Women) lovastatin 40 mg tablet 40 mg PO DAILY #90 tabs 12/12/22 12/04/23 Rx omeprazole 20 mg capsule,delayed 20 mg PO DAILY #90 caps 12/12/22 12/04/23 Rx release albuterol sulfate 90 mcg/actuation 2 puff inhalation Q6H PRN 05/01/23 12/04/23 Rx aerosol inhaler shortness of breath or wheezing #18 grams losartan 25 mg tablet 25 mg PO DAILY #90 tabs 10/10/23 12/04/23 Rx metoprolol succinate 25 mg 25 mg PO DAILY #90 tabs 10/10/23 12/04/23 Rx tablet,extended release 24 hr gabapentin 300 mg capsule See Rx Instructions .Route 10/16/23 12/04/23 Rx .COMPLEX #90 caps lisinopril 10 mg tablet 10 mg PO DAILY 11/21/23 12/04/23 History raloxifene 60 mg tablet 60 mg PO DAILY 11/21/23 12/04/23 History magnesium oxide 400 mg PO DAILY 11/29/23 12/04/23 History Laboratory Tests 11/21/23 11/21/23 18:56 19:05 WBC 8.7 K/mm3 (4.5-10.0) RBC 3.53 L M/mm3 (4.2-5.4) Hgb 11.1 L g/dL (12.0-15.0) Hct 34.6 L % (37.0-47.0) MCV 98.0 fl (80-100) MCH 31.4 pg (26-34) MCHC 32.1 g/dl (32-36) RDW 13.9 % (11.5-14.5) Plt Count 279 k/mm3 (150-375) MPV 9.4 fl (7.4-10.4) Immature Gran % (Auto) 0.5 % (0-0.5) Neut % (Auto) 58.7 % (45.5-73.1) Lymph % (Auto) 25.9 % (18.3-44.2) [place] % (Auto) 9.4 H % (2.6-8.5) Eos % (Auto) 4.9 H % (0-4.4) Baso % (Auto) 0.6 % (0.2-1.2) Lymph # (Auto) 2.26 K/mm3 (0.9-3.2) [place] # (Auto) 0.8 H K/mm3 (0.1-0.6) Eos # (Auto) 0.4 H K/mm3 (0-0.3) Baso # (Auto) 0.1 K/mm3 (0.0-0.1) Abs Immat Gran (auto) 0.04 H K/mm3 (0.00-0.031) Absolute Neuts (auto) 5.1 K/mm3 (1.3-6.7) Absolute Nucleated RBC 0.000 K/mm3 (0.0-0.012) Nucleated RBC % 0.0 % (0.0-0.2) Sodium 139 mmol/L (137-145) Potassium 4.7 mmol/L (3.4-5.0) Chloride 107 mmol/L (98-107) Carbon Dioxide 25 mmol/L (22-30) Anion Gap 7 mmol/L (4-12) BUN 25 H D mg/dL (7-17) Creatinine 1.80 H mg/dL (0.7-1.0) Estim Creat Clear Calc Not Reportable Estimated GFR 27 L (59 - ) Glucose 85 mg/dL (65-110) Calcium 10.2 mg/dL (8.4-10.2) Total Bilirubin 0.6 mg/dL (0.2-1.3) AST 32 U/L (14-36) ALT 20 U/L (6-35) Alkaline Phosphatase 62 U/L (38-126) Total Protein 7.0 g/dL (6.3-8.2) Albumin 4.1 g/dL (3.5-5.1) Lipase 197 U/L (23-300) Urine Color Yellow (Yellow) Urine Appearance Clear (Clear) Urine pH 6.5 (5.0-9.0) Ur Specific [place] 1.009 (1.001-1.035) Urine Protein Negative mg/dL
--- NOTE | 2023-11-22 16:12 | P.OP_ITS ---
Procedure Note - Detailed Date of Procedure 11/22/23 Pre-op Diagnosis Left distal ureteral stone x2 History of left ureteral reimplant Post-op Diagnosis Same Procedure Performed Cystoscopy, left retrograde pyelogram, left distal ureteroscopy, stone extraction x2, stent insertion Surgeon Franklin Platt MD Anesthesia General Findings - Two distal left ureteral stones - 4mm and 3mm -extracted with basket -left ureteral reimplant with efflux from left ureter -narrowing of left ureter proximal to the stones that would not accommodate the scope -6F left ureteral stent insertion Description of Procedure Informed consents obtained. Patient taken the operating. She was given preoperative IV antibiotics on the floor. She was induced anesthesia. She was prepped and draped normal sterile fashion. We inserted a cystoscope through the urethra into the bladder. Inspected the bladder revealed no mucosal abnormalities except a left lateral bladder wall ureteral orifice. Efflux was seen from the left ureteral orifice. We then cannulated the left ureteral or ifice with a wire we able to navigate beyond level the stones. We then dilated with an 810 coaxial dilator to achieve 2 wire access. Adjacent to the wires we then advanced a semi rigid ureteral scope into the distal most aspect of the ureter where 2 stones were encountered. Each stone was grasped and removed. Stones measured approximately 4mm and 3mm in size. We then we inserted the ureteral scope in there was no residual stone seen in the distal most ureter. We attempted to advanced the semi rigid ureteral scope above this level, however it would not accommodate the scope. As both stones seen on CT scan had been extracted, we elected not to further attempt to advance the scope. Retrograde pyelogram was performed this showed moderate hydroureteronephrosis without extravasation. Over the wire we placed a 6 F variable length stent with curl in the renal pelvis and a curl in the bladder. The bladder was emptied lidocaine was instilled. Patient was then awakened taken recovery in stable condition. Follow-up: The patient has a follow-up in the office in 1 to 2 weeks. We will likely proceed with stent removal at that time Urine Output 200 Complications No immediate complications Condition Stable Disposition PACU
[2023-11-22] MEDS: GABAPENTIN 300 MG CAPSULE 600 MG BY MOUTH (20:13)
[2023-11-23 06:00] VITALS: BP 145/86; PULSE 73; RESP 18; TEMP 36.3; O2SAT 96
[2023-11-23 06:34] LABS: Basophils Percent Auto 0.3 % (0.2-1.2); Hematocrit 29.2 % (37.0-47.0); Hemoglobin 9.4 g/dL (12.0-15.0); Immature Granulocyte Absolute 0.03 K/mm3 (0.00-0.031); Immature Granulocyte Percent A 0.4 % (0-0.5); Lymphocytes Absolute Auto 0.76 K/mm3 (0.9-3.2); Lymphocytes Percent Auto 11.3 % (18.3-44.2); Mean Corpuscular HGB Conc 32.2 g/dl (32-36); Mean Corpuscular Hemoglobin 31.8 pg (26-34); Mean Corpuscular Volume 98.6 fl (80-100); Mean Platelet Volume 9.8 fl (7.4-10.4); Monocytes Absolute Auto 0.3 K/mm3 (0.1-0.6); Monocytes Percent Auto 4.7 % (2.6-8.5); Neutrophils Absolute Auto 5.6 K/mm3 (1.3-6.7); Neutrophils Percent Auto 83.3 % (45.5-73.1); Platelet Count Result 246 k/mm3 (150-375); Red Blood Count 2.96 M/mm3 (4.2-5.4); Red Cell Distribution Width 13.7 % (11.5-14.5); White Blood Count 6.7 K/mm3 (4.5-10.0)
[2023-11-23 06:40] LABS: Alanine Aminotransferase 18 U/L (6-35); Albumin Level 3.5 g/dL (3.5-5.1); Alkaline Phosphatase 48 U/L (38-126); Anion Gap 4 mmol/L (4-12); Aspartate Amino Transferase 30 U/L (14-36); Bilirubin,Total 0.5 mg/dL (0.2-1.3); Blood Urea Nitrogen 23 mg/dL (7-17); Calcium 9.3 mg/dL (8.4-10.2); Carbon Dioxide 24 mmol/L (22-30); Chloride 106 mmol/L (98-107); Estimated Glomerular Filt Rate 25; Glucose 130 mg/dL (65-110); Potassium 5.1 mmol/L (3.4-5.0); Sodium 134 mmol/L (137-145)
[2023-11-23] MEDS: RALOXIFENE HCL (*CHEMO) 60 MG TABLET PO (08:26)
[2023-11-23] MEDS: GABAPENTIN 300 MG CAPSULE BY MOUTH (08:27)
[2023-11-23] MEDS: LOVASTATIN 20 MG TABLET 40 MG PO (08:27)
[2023-11-23] MEDS: ASPIRIN 81 MG ENTERIC TABLET PO (08:27)
[2023-11-23] MEDS: CALCIUM CARBONATE (OSCAL) 500 MG TABLET 600 MG PO (08:27)
[2023-11-23] MEDS: PANTOPRAZOLE 40 MG TABLET PO (08:27)
[2023-11-23 08:28] VITALS: PULSE 73
[2023-11-23] MEDS: METOPROLOL SUCCINATE EXT REL 25 MG TABCR PO (08:28)
--- NOTE | 2023-11-23 10:17 | PM.IMPN ---
Progress Note: A&P Assessment and Plan (1) Ureteral stone with hydronephrosis: Code(s): N13.2 - Hydronephrosis with renal and ureteral calculous obstruction Status: Acute Assessment and Plan: Found to have distal left ureteral stones on CT Underwent cystoscopy, left retrograde pyelogram, left distal ureteroscopy, stone extraction stent insertion by Dr. Platt on 11/22/2023 Feeling very well. Will plan for discharge later today. Will follow-up as an outpatient in 1-2 weeks (2) UTI (urinary tract infection): Code(s): N39.0 - Urinary tract infection, site not specified Status: Acute Assessment and Plan: Ruled out. UA on presentation was slightly abnormal, though she was asymptomatic Urine culture is negative. No need for further antibiotic treatment (3) CKD (chronic kidney disease) stage 3, GFR 30-59 ml/min: Code(s): N18.3 - Chronic kidney disease, stage 3 (moderate) Status: Acute Assessment and Plan: Chronic kidney disease, follows with Dr. Giles Baseline creatinine 1.8-2.2 Creatinine has remained stable, consistent with baseline. 1.9 today (4) Spinal stenosis of lumbar region with neurogenic claudication: Code(s): M48.062 - Spinal stenosis, lumbar region with neurogenic claudication Status: Acute Assessment and Plan: No acute issues Continue analgesics as needed (5) Essential (primary) hypertension: Code(s): I10 - Essential (primary) hypertension Status: Acute Assessment and Plan: Blood pressure stable, well controlled. Last BP 145/86 Continue home antihypertensives (6) Cigarette smoker: Code(s): F17.210 - Nicotine dependence, cigarettes, uncomplicated Status: Acute Assessment and Plan: Smokes 1/4 pack of cigarettes per day Smoking cessation education provided (7) COPD (chronic obstructive pulmonary disease) with acute bronchitis: Code(s): J44.0 - Chronic obstructive pulmonary disease with (acute) lower respiratory infection; J20.9 - Acute bronchitis, unspecified Status: Acute Assessment and Plan: Not in acute exacerbation. Not on supplemental oxygen Continue home inhalers Subjective Date/time seen: 11/23/23 10:17 Interval history: Elsa is feeling very well today. She tolerated her surgery well yesterday. She has been up and ambulating without difficulty. She is tolerating her diet. Denies stent discomfort. She is voiding well. Reports urine is pinkish following surgery. Denies dysuria. She denies shortness of breath, cough, chest pain, nausea, vomiting, fever, chills, dizziness, lightheadedness. She is feeling very well and wants to go home. Review of Systems Review of Systems: All systems reviewed & are unremarkable except as noted in HPI and below Exam Narrative: General: Well-nourished, well-appearing 88-year-old female, sitting up in bed, comfortable, NARD Neuro: awake, alert and oriented x4, speech clear, no focal neuro deficits noted HEENMT: normocephalic, atraumatic, EOMI, sclerae anicteric Respiratory: clear to auscultation bilaterally, nonlabored breathing Cardio: regular rate, regular rhythm with S1-S2 Abdomen: nondistended, normoactive bowel sounds, soft, nontender to palpation Extremities: no edema, erythema, or tenderness to palpation Skin: no rashes or lesions, warm and dry Psych: appropriate mood and affect, judgment and insight intact Objective Data Vital Signs Vital Signs: Vital Signs - 24 hr 11/22/23 14:00 11/22/23 14:28 11/22/23 16:13 Temperature 97.4 F L 97.2 F L Pulse Rate 99 83 Respiratory Rate 16 15 Blood Pressure 127/65 115/56 L Pulse Oximetry 92 100 Oxygen Delivery Room Air Simple Face Mask Oxygen Flow Rate 6 11/22/23 16:25 11/22/23 16:40 11/22/23 16:55 Temperature Pulse Rate 79 78 64 Respiratory Rate 18 15 12 Blood Pressure 115/90 120/60 144/58 H Pulse Oximetry 100 92
--- NOTE | 2023-11-23 11:22 | PM.DS ---
DS: Admitting Diagnosis Discharge Date 11/23/2023 Admitting Diagnosis Left ureteral stone DS: Discharge Diagnosis Discharge Diagnosis (1) Ureteral stone with hydronephrosis: Code(s): N13.2 - Hydronephrosis with renal and ureteral calculous obstruction Status: Acute Assessment and Plan: Found to have distal left ureteral stones on CT Underwent cystoscopy, left retrograde pyelogram, left distal ureteroscopy, stone extraction stent insertion by Dr. Platt on 11/22/2023 Will follow-up as an outpatient in 1-2 weeks for stent removal (2) UTI (urinary tract infection): Code(s): N39.0 - Urinary tract infection, site not specified Status: Ruled-out Assessment and Plan: Ruled out. UA on presentation was slightly abnormal, though she was asymptomatic Urine culture negative. No need for further antibiotic treatment (3) CKD (chronic kidney disease) stage 3, GFR 30-59 ml/min: Code(s): N18.3 - Chronic kidney disease, stage 3 (moderate) Status: Acute Assessment and Plan: Chronic kidney disease, follows with Dr. Giles Baseline creatinine 1.8-2.2. Renal function remained stable during admission (4) Spinal stenosis of lumbar region with neurogenic claudication: Code(s): M48.062 - Spinal stenosis, lumbar region with neurogenic claudication Status: Acute Assessment and Plan: No acute issues during admission Continue analgesics as needed (5) Essential (primary) hypertension: Code(s): I10 - Essential (primary) hypertension Status: Acute Assessment and Plan: Blood pressure well controlled during admission Continue home antihypertensives (6) Cigarette smoker: Code(s): F17.210 - Nicotine dependence, cigarettes, uncomplicated Status: Acute Assessment and Plan: Smokes 1/4 pack of cigarettes per day Smoking cessation education provided (7) COPD (chronic obstructive pulmonary disease) with acute bronchitis: Code(s): J44.0 - Chronic obstructive pulmonary disease with (acute) lower respiratory infection; J20.9 - Acute bronchitis, unspecified Status: Acute Assessment and Plan: Not in acute exacerbation. Not on supplemental oxygen Continue home inhalers DS: Summary Hospital Course Hospital Course: Elsa Turner is an 88-year-old female with a history of hyperlipidemia, hypertension, COPD, CKD and prior kidney stones who presented to the emergency department on 11/21/2023 with complaints of left flank pain. She was found to have two distal left ureteral stone with mild left hydronephrosis. She was seen in consultation by Urology during admission and underwent cystoscopy, stone extraction, and left stent insertion. She will follow-up as an outpatient for removal. Following her surgery, she was feeling very well on her labs were stable. She felt comfortable with plans for discharge home. We discussed worrisome signs and symptoms for which to return she was discharged in hemodynamically stable condition on 11/23/2023. Time Spent with Patient Time attestation: Total time spent providing and/or coordinating discharge services: 45 minutes Time spent: Greater than 30 minutes Exam Narrative: General: Well-nourished, well-appearing 88-year-old female, sitting up in bed, comfortable, NARD Neuro: awake, alert and oriented x4, speech clear, no focal neuro deficits noted HEENMT: normocephalic, atraumatic, EOMI, sclerae anicteric Respiratory: clear to auscultation bilaterally, nonlabored breathing Cardio: regular rate, regular rhythm with S1-S2 Abdomen: nondistended, normoactive bowel sounds, soft, nontender to palpation Extremities: no edema, erythema, or tenderness to palpation Skin: no rashes or lesions, warm and dry Psych: appropriate mood and affect, judgment and insight intact DS: Data Data Completed and Pending Pending studies at discharge: Pending at dischar
== END 2023-11-23 12:05 | disposition home or self-care (01) ==
LOC: ANHED 21:03 → ANH3MEDSUR 23:07
PROVIDERS: Nurse Practitioner; Urology; Admitting Provider Internal Medicine; Emergency Provider Physician Assistant; PCP Family Medicine; Visit Provider Internal Medicine
PROC: (CPT 52352; principal; 2023-11-22 15:00)
DX: N13.2 Hydronephrosis with renal and ureteral calculous obstruction (principal); M48.062 Spinal stenosis, lumbar region with neurogenic claudication; E78.5 Hyperlipidemia, unspecified; J44.0 Chronic obstructive pulmonary disease with (acute) lower respiratory infection; J20.8 Acute bronchitis due to other specified organisms; K21.9 Gastro-esophageal reflux disease without esophagitis; I12.9 Hypertensive chronic kidney disease with stage 1 through stage 4 chronic kidney disease, or unspecified chronic kidney disease; N18.30 Chronic kidney disease, stage 3 unspecified; Z94.0 Kidney transplant status; G50.0 Trigeminal neuralgia; F17.210 Nicotine dependence, cigarettes, uncomplicated; F10.90 Alcohol use, unspecified, uncomplicated; Z79.51 Long term (current) use of inhaled steroids; Z79.82 Long term (current) use of aspirin; Z79.899 Other long term (current) drug therapy
CPT/HCPCS: 52352; 52332; 36415; 74176; 74420; 80053; 81001; 82365; 83690; 83735; 85025; 87040; 87086; 88300; 96361; 96365; 96375; 99285; A9270; C1769; C2617; G0378; J0690; J0696; J1100; J2270; J2405; J2704; J3010; J7030; J7120; Q9966

== ENCOUNTER 2024-01-16 14:17 | Outpatient (CLI) | payer MEDICARE, SELFPAY ==
--- NOTE | ~2024-01-16 | CT_ITS ---
EXAMINATION: CT abdomen pelvis wo con DATE: 01/16/2024 14:39 INDICATION: Left lower quadrant abdominal pain. TECHNIQUE: Computed tomography (CT) of the abdomen and pelvis was performed without intravenous contr ast. Automated exposure control and iterative reconstruction technique were employed. The dose-length product was 263.62 mGy-cm. COMPARISON: CT abdomen and pelvis 11/21/2023 FINDINGS: The visualized portions of the lung bases demonstrate mild atelectasis. No pleural effusion . The heart size is normal. There are coronary artery calcifications. No pericardial effusion. The li connie is normal. There is a gallstone in the gallbladder, which is normal in size. The spleen, pancreas , adrenal glands, and left kidney are normal. There is a 2.2 cm cyst in right kidney. There are 3 sto berhane in right kidney measuring up to 6 mm. There is calcified atherosclerosis of the aorta and many of the other arteries. There are no dilated loops of bowel. The appendix is normal. There is diverticul osis of the colon without evidence of diverticulitis. There are no pathologically enlarged lymph node s. There is no free intraperitoneal fluid. There is lumbar levoscoliosis and severe spondylosis. IMPRESSION: 1. No etiology for the patient's symptoms. Reviewed, dictated and finalized at location A.
== END 2024-01-16 14:18 | disposition home or self-care (01) ==
PROVIDERS: PCP Family Medicine; Visit Provider Internal Medicine Nephrology
DX: R10.9 Unspecified abdominal pain (principal)
CPT/HCPCS: 74176

== ENCOUNTER 2024-02-28 15:15 | Outpatient (CLI) | payer MEDICARE, SELFPAY ==
--- NOTE | ~2024-02-28 | MM_ITS ---
EXAMINATION: MM screening jose BI w don HISTORY: Screening TECHNIQUE: Craniocaudal and mediolateral oblique 3-D tomosynthesis images were obtained and synthetic 2-D images were generated. CAD analysis was submitted and interpreted. COMPARISON: Comparison to multiple prior studies sequentially, with oldest reviewed study dated 03/2021. BREAST PARENCHYMAL COMPOSITION: Not dense: There are scattered areas of fibroglandular density. FINDINGS: There is no evidence of suspicious mass, calcification, or architectural distortion to sugg est malignancy in either breast. There has been no suspicious interval change. IMPRESSION: 1. No mammographic evidence of malignancy. 2. Recommend routine screening mammography in one year. BI-RADS Category 1: Negative Reviewed, dictated and finalized at location B.
== END 2024-02-28 15:16 ==
LOC: MICIMG 15:18
PROVIDERS: PCP Family Medicine; Visit Provider Family Medicine
DX: Z12.31 Encounter for screening mammogram for malignant neoplasm of breast (principal)
CPT/HCPCS: 77063; 77067

== ENCOUNTER 2024-07-20 11:59 | Outpatient (CLI) | payer MEDICARE, SELFPAY ==
--- NOTE | ~2024-07-20 | XR_ITS ---
XR abdomen/kub 1V Ordering provider: Hugh Goldsmith MD History: . Lt ureteral stone . Comparison: None. FINDINGS: BOWEL: Nonobstructive bowel gas pattern. ORGANOMEGALY: None. SIGNIFICANT PATHOLOGIC CALCIFICATIONS: A right kidney stones. Small calcification is projected over t he bladder on the left side which may be a small ureteric stone. OTHER: No free air is seen under the diaphragm. Degenerative changes of the spine with levoscoliosis. IMPRESSION: NO ACUTE ABDOMINAL FINDINGS. Right kidney stones. Highly suggestive left lower ureteric stone. Reviewed, dictated and finalized at location A. [employer]
== END 2024-07-20 12:00 | disposition home or self-care (01) ==
PROVIDERS: PCP Family Medicine; Visit Provider Urology
DX: N20.2 Calculus of kidney with calculus of ureter (principal)
CPT/HCPCS: 74018

== ENCOUNTER 2024-12-30 12:11 | Outpatient (CLI) | payer MEDICARE, SELFPAY ==
--- OUTSIDE RECORDS SUMMARY | 2024-12-30 12:15 | XMS_ITS | Clinical Summary ---
Author Organization [facility] Address [address] [place] [address] Care Team Providers Care Advertising Campaign Manager Name Role Phone Unavailable Primary Care Provider Unavailabl e Source Comments [facility],non-owned Affiliates and Associated Physician Practices is amultiple site organization consisting of ambulatory clinics and hospital sitesin [place], [place], [place] and [place]. This disclosure is being madepursuant to the Care Everywhere program and may not contain all information available regarding this patient. Last updated 18.[facility] [employer] Allergies Active Allergy Reactions Criticality Noted Date Comments Nitrofurantoin 09/20/2009 Penicillins 09/20/2009 Medications * Be aware that medications may not be up to date on this document. Alwaysverify current medications with the patient. LOVASTATIN PO Take by mouth. Active ibuprofen (MOTRIN) 600 MG tablet Take 600 mg by mouth every 6 hours as needed for Pain. Active omeprazole (PRILOSEC) 20 MG capsule 08/29/2010 Active Aspirin (ASPIR-LOW) 81 MG TBEC Take by mouth. Active metoprolol succinate XL 24hr (TOPROL XL) 100 MG tablet Take 100 mg by mouth once daily. Active EVISTA 60 MG tablet TAKE ONE TABLET BY MOUTH DAILY 90 Tab 3 09/30/2012 Active Active Problems Problem Noted Date Diagnosed Date Osteopenia 09/20/2009 Overview (09/20/2009): Taking Evista Social History Tobacco Use Types Packs/Day Years Used Date Smoking Tobacco: Every Day Alcohol Use Standard Drinks/Week Comments Not Asked 0 (1 standard drink = 0.6 oz pur e alcohol) Comments No Sex and Gender Information Value Date Recorded Sex Assigned at Not on file Legal Sex Female 6:24 AM OPERATIONS CONTROLLER Gender Identity Not on file Sexual Orientation Not on file Last Filed Vital Signs Vital Sign Reading Time Taken Comments Blood Pressure 122/72 09/16/2012 9:36 AM OPERATIONS CONTROLLER Pulse - - Temperature - - Respiratory Rate - - Oxygen Saturation - - Inhaled Oxygen Concentration - - Weight 54.9 kg (121 lb) 09/16/2012 9:36 AM OPERATIONS CONTROLLER Height - - Body Mass Index - - Plan of Treatment Health Maintenance Due Date Last Done Comments MEDICARE AWV 12 MONTHS 1935 DTAP/TDAP/TD VACCINES (1 - Tdap) 1954 PNEUMOCOCCAL VACCINE 50+ (1 of 2 - PCV) 1954 ZOSTER VACCINE (1 of 2) 1985 Respiratory Syncytial Virus (RSV) Vaccine Pt: or over 60 yrs (1 - 1-dose 75+ series) 2010 COVID-19 VACCINE (2023-2 5 season) 2024 DEPRESSION SCREENING 07/29/2024 INFLUENZA VACCINE (Season Ended) 2025 BONE DENSITY TESTING Completed 10/27/2008 HEPATITIS B VACCINE Aged Out No longe r eligible based on patient's age to complete this topic HIB VACCINE Aged Out No longer eligi ble based on patient's age to complete this topic HPV VACCINE Aged Out No longer eligi ble based on patient's age to complete this topic MENINGOCOCCAL (Group B) VACC INE SHARED DECISION-MAKING Aged Out No longer eligibl e based on patient's age to complete this topic MENINGOCOCCAL GROUPS A/C/Y/W VACCINE Aged Out No longer eligible b ased on patient's age to complete this topic Procedures Procedure Name Priority Date/Time Associated Diagnosis Comments DEXA BONE DENSITY 2 SITES Routine 10/27/2008 from Last 3 Months or Most Recently Relevant to Health Maintenance Results * DEXA BONE DENSITY 2 SITES (10/27/2008) Anatomical Region Laterality Modality Other Siddharth Tomlinson MD DEXA ORDERABLES Final Result from Last 3 Months or Most Recently Relevant to Health Maintenance Insurance [employer]ICARE * Guarantor: ELSA TURNER Account Type Relation to Patient Date of Phone Billing Address Personal/Family [address] [place] [address] SELF PAY NO INSURANCE Member Subscriber Plan / Payer (Ef fective for All Dates) Name:Elsa Turner Member ID:Not on file Relation to Subscriber:Not on file Name:ELSA TURNER Subscriber ID:Not on file (Home) Address: [address] [place] [address] Payer ID:Not on file Group ID:Not on file Type:Self Pay Address: [place], [place] UHC MANAGED MEDICARE ADV * Guarantor: ELSA TURNER Account Type Relation to Patient Date of Phone Billing Address Personal/Family [address] [place] [address] SELF PAY NO INSURANCE Member Subscriber Plan / Payer (Ef fective for All Dates) Name:Elsa Turner Member ID:Not on file Relation to Subscriber:Not on file Name:ELSA TURNER Subscriber ID:Not on file (Home) Address: [address] [place] [address] Payer ID:Not on file Group ID:Not on file Type:Self Pay Address: [facility] MANAGED MEDICARE ADV * Guarantor: ELSA TURNER Account Type Relation to Patient Date of Phone Billing Address Personal/Family [address] [place] [address] SELF PAY NO INSURANCE Member Subscriber Plan / Payer (Ef fective for All Dates) Name:Elsa Turner Member ID:Not on file Relation to Subscriber:Not on file Name:ELSA TURNER Subscriber ID:Not on file (Home) Address: [address] [place] [address] Payer ID:Not on file Group ID:Not on file Type:Self Pay Address: [place], [place] UHC MANAGED MEDICARE ADV [facility] MEDICARE
--- OUTSIDE RECORDS SUMMARY | 2024-12-30 12:15 | XMS_ITS | Continuity of Care Document ---
Author Organization [facility] Address [address] [place] [address] Phone Care Team Providers Care Extension Course Counselor Name Role Phone Dash Mendez MD Unavailable Unavailable Advance Directives Directive Yes / No Effective Date File Name No Information Encounters Encounter Description Practice Location Reason(s) For Visit Diagnoses Date Provider Providers Copied on Encounter [facility], [address], [place], [place], [id number], [place] tel:[phone] [facility] No Information Vanessa Bowling. [address] , [place], [place], [id number], [place]. tel:[phone] Referring Provider: Nash Leal DO, [address], [place], [address]. tel:[phone] Family History Family Member Type Diagnosis Age At Onset No Information Payers Payer name Insurance type Covered alliance party ID Authoriza tion(s) [facility] MDCR COMPLETE HMO [id number] Social History Type Description Quantity Date Captured Comments Sex Female Smoking Status No Information Chief Complaint And Reason For Visit No Information Reason For Referral Reason For Referral No Information History Of Present Illness Encounter Date Complaint History Of Prese nt Illness No Information Functional Status Date Functional Assessmen t No Information Instructions Date Instruction Additional Infor mation No Information Assessments Type Assessment Date No Information Patient Care Teams Name Effective Dates (start - stop) Status Members No Information
--- NOTE | 2024-12-30 13:30 | NEURO_ITS ---
Impression: # Complains of numbness of hands. Non-diabetic. ? # Bilateral Carpal Tunnel Syndrome, left more than right. ? # Bilateral ulnar neuropathy around the elbows. ? # Abnormal needle/EMG exam. Nerve Conduction Studies Anti Sensory Summary Table ?Stim Site NR Peak (ms) P-T Amp (?V) Site1 Site2 Delta-P (ms) Dist (cm) Indra (m/s) Left Median Anti Sensory (2-3nd Digit) Wrist ? 6.6 20.5 Wrist 2-3nd Digit 6.6 14.0 21 Wrist ? 6.3 15.6 Wrist 2-3nd Digit 6.6 14.0 21 Right Median Anti Sensory (2-3nd Digit) Wrist ? 3.8 13.1 Wrist 2-3nd Digit 3.8 14.0 37 Wrist ? 3.9 13.0 Wrist 2-3nd Digit 3.8 14.0 37 Left Radial Anti Sensory (Base 1st Digit) Wrist ? 2.5 18.3 Wrist Base 1st Digit 2.5 0.0 Right Radial Anti Sensory (Base 1st Digit) Wrist ? 2.7 15.0 Wrist Base 1st Digit 2.7 0.0 Left Ulnar Anti Sensory (5th Digit) Wrist ? 3.5 8.7 Wrist 5th Digit 3.5 14.0 40 Right Ulnar Anti Sensory (5th Digit) Wrist ? 2.9 17.0 Wrist 5th Digit 2.9 14.0 48 Motor Summary Table ?Stim Site NR Onset (ms) O-P Amp (mV) Site1 Site2 Delta-0 (ms) Dist (cm) Indra (m/s) Left Median Motor (Abd Poll Brev) Wrist ? 6.4 1.7 Elbow Wrist 4.6 26.0 57 Elbow ? 11.0 1.3 Right Median Motor (Abd Poll Brev) Wrist ? 4.8 1.4 Elbow Wrist 5.7 27.0 47 Elbow ? 10.5 1.3 Left Ulnar Motor (Abd Dig Minimi) Wrist ? 3.4 3.0 A Elbow Wrist 5.3 27.0 51 A Elbow ? 8.7 1.4 B Elbow Wrist 3.1 18.0 58 B Elbow ? 6.5 1.9 Right Ulnar Motor (Abd Dig Minimi) Wrist ? 2.8 3.0 A Elbow Wrist 6.2 27.0 44 A Elbow ? 9.0 1.8 B Elbow Wrist 3.8 20.0 53 B Elbow ? 6.6 1.9 F Wave Studies ?NR F-Lat (ms) L-R F-Lat (ms) Left Median (Mrkrs) (Abd Poll Brev) ? 38.70 5.89 Right Median (Mrkrs) (Abd Poll Brev) ? 32.81 5.89 Left Ulnar (Mrkrs) (Abd Dig Min) ? 29.87 2.02 Right Ulnar (Mrkrs) (Abd Dig Min) ? 31.88 2.02 EMG ?Side Muscle Nerve Root Ins Act Fibs Amp Dur Recrt Comment Right 1stDorInt Ulnar C8-T1 Nml Nml Nml Nml Nml Right Ext Indicis Radial (Post Int) C7-8 Nml Nml Nml Nml Nml Right Ext Digitorum Radial (Post Int) C7-8 Nml Nml Nml Nml Nml Right BrachioRad Radial C5-6 Nml Nml Nml Nml Nml Right PronatorTeres Median C6-7 Nml Nml Nml Nml Nml Right Abd Poll Brev Median C8-T1 Nml Nml Nml Nml Nml Right ABD Dig Min Ulnar C8-T1 Nml Nml Nml Nml Nml Right FlexPolLong Median (Ant Int) C7-8 Nml Nml Nml Nml Nml Right Abd Poll Long Radial (Post Int) C7-8 Nml Nml Nml Nml Nml Left 1stDorInt Ulnar C8-T1 Nml Nml Nml >12ms +1 Left Ext Indicis Radial (Post Int) C7-8 Nml Nml Nml Nml Nml Left Ext Digitorum Radial (Post Int) C7-8 Nml Nml Nml Nml Nml Left BrachioRad Radial C5-6 Nml Nml Nml Nml Nml Left PronatorTeres Median C6-7 Nml Nml Nml Nml Nml Left Abd Poll Brev Median C8-T1 Nml Nml Nml >12ms +1 Left ABD Dig Min Ulnar C8-T1 Nml Nml Nml >12ms +1 Left FlexPolLong Median (Ant Int) C7-8 Nml Nml Nml Nml Nml Left Abd Poll Long Radial (Post Int) C7-8 Nml Nml Nml Nml Nml
== END 2024-12-30 12:12 | disposition home or self-care (01) ==
PROVIDERS: PCP Family Medicine; Visit Provider Family Medicine
DX: G56.03 Carpal tunnel syndrome, bilateral upper limbs (principal); G56.23 Lesion of ulnar nerve, bilateral upper limbs; R94.131 Abnormal electromyogram [EMG]
CPT/HCPCS: 95886; 95911